=== PATIENT | male | born 1970 | race Caucasian/White ===

== ENCOUNTER 2021-04-30 06:58 | Day surgery (SDC) | payer BC, OTHER ==
[2021-04-30] MEDS ORDERED: Sodium Chloride 0.9% 1,000 ML IV SCH (07:30)
[2021-04-30] MEDS ORDERED: Midazolam 1 MG/ML 2 ML SDV ONE (07:37)
[2021-04-30] MEDS ORDERED: fentaNYL 100 MCG/2 ML SDV ONE (07:37)
[2021-04-30] MEDS ORDERED: Propofol 200 MG/20 ML SDV ONE (07:37)
[2021-04-30 10:04] VITALS: PULSE 59
[2021-04-30 10:05] VITALS: BP 147/81
--- NOTE | 2021-05-01 08:10 | OR ---
DATE OF PROCEDURE: 04/30/2021 SURGEON: Jaya Hoover MD PROCEDURE: Colonoscopy. FINDINGS: Diverticulosis, mild, limited to sigmoid colon. COMPLICATIONS: None. HEALTH INFORMATION CODER: None. ANESTHESIA: MAC. PREOPERATIVE DIAGNOSIS: Family history of colorectal cancer. POSTOPERATIVE DIAGNOSIS: Family history of colorectal cancer. RISKS: Risks, benefits, alternatives, and limitations including, but not limited to infection, bleeding, perforation, false positives and false negatives were explained to the patient and who wished to proceed. PROCEDURE IN DETAIL: The patient was placed in left lateral decubitus position. Digital rectal exam was performed without abnormality. Scope was introduced and advanced atraumatically to the ileocecal valve. A photo was taken of this. Scope was brought back to the ascending, transverse, descending colon, and retroflexed. No evidence of old or new blood. No masses. No polyps. The diverticulosis was described as mild and limited to sigmoid colon without evidence of diverticulitis or bleeding. No abnormalities on retroflexion. Greater than 8 minutes was spent removing the scope. The patient tolerated the procedure well. Recommend repeat colonoscopy in 5 years. Jaya Hoover MD /[id number]
== END 2021-04-30 10:15 | disposition home or self-care (01) ==
LOC: JP.SDS 06:58
PROVIDERS: ATTEND Surgery
DX: Z12.11 Encounter for screening for malignant neoplasm of colon (principal); K57.30 Diverticulosis of large intestine without perforation or abscess without bleeding; I10 Essential (primary) hypertension; G47.33 Obstructive sleep apnea (adult) (pediatric); Z80.0 Family history of malignant neoplasm of digestive organs
CPT/HCPCS: J2250; J2704; J3010; J7030

== ENCOUNTER 2021-10-02 22:10 | Emergency (ER) | payer OTHER ==
[2021-10-02 23:25] VITALS: BP 155/92; PULSE 88
== END 2021-10-02 23:46 | disposition home or self-care (01) ==
LOC: JP.ED 22:10
DX: U07.1 COVID-19 (principal); J01.90 Acute sinusitis, unspecified; H10.33 Unspecified acute conjunctivitis, bilateral; I10 Essential (primary) hypertension; E11.9 Type 2 diabetes mellitus without complications; Z79.899 Other long term (current) drug therapy; Z88.0 Allergy status to penicillin; Z88.2 Allergy status to sulfonamides; Z88.8 Allergy status to other drugs, medicaments and biological substances
CPT/HCPCS: 99281; 99283

== ENCOUNTER 2023-10-07 18:04 | Emergency (ER) | payer OTHER ==
[2023-10-07 18:16] VITALS: BP 146/91; PULSE 73
[2023-10-07] MEDS: Diphtheria,Pertussis(Acell),Tetanus Vaccine 0.5 ML Syringe IM ONE (19:10)
[2023-10-07] MEDS: Lidocaine 1% 10 ML MDV INJECT ONE (19:10)
[2023-10-07] MEDS: Erythromycin Base 0.5% Ophth Oint 3.5 GM Tube EYEBOTH ONE (20:09)
== END 2023-10-07 20:24 | disposition home or self-care (01) ==
LOC: JP.ED 18:04
DX: S61.412A Laceration without foreign body of left hand, initial encounter (principal); I10 Essential (primary) hypertension; E11.9 Type 2 diabetes mellitus without complications; Z86.16 Personal history of COVID-19; Z79.84 Long term (current) use of oral hypoglycemic drugs; Z79.899 Other long term (current) drug therapy; Z88.2 Allergy status to sulfonamides; Z88.1 Allergy status to other antibiotic agents; Z23 Encounter for immunization; W26.8XXA Contact with other sharp object(s), not elsewhere classified, initial encounter
CPT/HCPCS: 12002; 90471; 90715; 99282; 99283; A9270

== ENCOUNTER 2024-11-23 23:16 | Emergency (ER) | payer SELFPAY ==
[2024-11-24] MEDS: Doxycycline 100 MG Cap PO ONE (00:28)
[2024-11-24 00:29] VITALS: BP 142/94; PULSE 60
== END 2024-11-24 00:34 | disposition home or self-care (01) ==
LOC: JP.ED 23:16
DX: S40.862A Insect bite (nonvenomous) of left upper arm, initial encounter (principal); I10 Essential (primary) hypertension; E11.9 Type 2 diabetes mellitus without complications; Z88.8 Allergy status to other drugs, medicaments and biological substances; Z88.2 Allergy status to sulfonamides; Z79.899 Other long term (current) drug therapy; W57.XXXA Bitten or stung by nonvenomous insect and other nonvenomous arthropods, initial encounter
CPT/HCPCS: 99281; A9270; 99282